=== PATIENT | male | born 1980 | race Caucasian/White ===

== ENCOUNTER 2022-04-30 11:24 | Emergency (ER) | payer OTHER, SELFPAY ==
[2022-04-30 11:25] VITALS: BP 153/87; PULSE 78; RESP 16; TEMP 36.8; O2SAT 99; BMI 26.0
[2022-04-30] MEDS: Morphine 4 MG/ML Syringe IV ×2 (11:32→14:12)
--- NOTE | 2022-04-30 11:33 | EX.ED.DYSGE1 ---
HPI History of Present Illness Chief Complaint: Lower Extremity Injury Informant: patient and EMS Narrative Narrative: Very pleasant 42-year-old male presenting to the emergency department with left knee injury. Patient was on a 4 foot ladder when he fell off and sustained a twisting injury to the leg. He states he felt something pop in his knee. He has been unable to ambulate. EMS notes deformity and placed him in a vacuum splint. He did not wish anything for pain in route to the hospital. He denies any other injuries. PFSH PFSH Allergy/AdvReac Type Severity Reaction Status Date / Time No Known Allergies Allergy Verified 04/30/22 11:25 Social History Smoking Status: Never smoker ROS ROS ED Constitutional Constitutional ED: Denies chills or weight loss Eyes Eyes: Denies change in vision or diplopia ENT ENT ED: Denies ear pain, rhinorrhea or sore throat Cardiovascular Cardiovascular: Denies chest pain, orthopnea, palpitations or racing heartbeat Respiratory/Chest Respiratory/Chest: Denies cough, dyspnea or orthopnea Gastrointestinal Gastrointestinal: Denies abdominal pain, diarrhea, nausea or vomiting Genitourinary Genitourinary ED: Denies dysuria, hematuria or urinary frequency Musculoskeletal Musculoskeletal: Reports other Details: Left knee deformity and pain ; Denies arthralgias or myalgias Integumentary Denies abscess or rash Neurologic Neurologic: Denies headache(s) or weakness Psychiatric Psychiatric: Denies anxiety, depression, suicidal ideation or suicidal thoughts Endocrine Endocrinology: Denies polydipsia, polyphagia or polyuria Allergic/Immunologic Allergic/Immunologic ED: Denies mouth swelling, tongue swelling or urticaria EXAM Physical Exam Const Vital Signs: 04/30/22 11:25 04/30/22 12:38 Temperature 98.2 F Temperature Source Temporal Pulse Rate 78 88 Respiratory Rate 16 16 Blood Pressure 153/87 H 139/84 H Blood Pressure Mean 109 102 Pulse Ox 99 95 Oxygen Delivery Method Room Air Room Air Positive well nourished and well developed General Appearance ED: well developed HEENT Reports normocephalic, head/scalp atraumatic and moist mucous membranes Eyes PERRL and EOMs intact bilaterally Neck no lymphadenopathy, supple and no JVD Resp normal respiratory effort and clear to auscultation bilaterally Cardio regular rate, regular rhythm and no murmurs GI normal to inspection, nondistended, normoactive bowel sounds and non-tender Palpation: soft Back/Spine no CVA tenderness and normal ROM Extremity Extremity Narrative: There is deformity of the right knee and swelling. Neuro oriented x3 and CN's II-XII intact bilaterally Sensorium / Orientation: alert Motor Exam: strength 5/5 throughout Psych mental status grossly normal Mood & Affect: Negative for depressed or tearful Skin no rashes or lesions noted and no wounds MDM MDM MDM Narrative Medical decision making narrative: My interpretation of the plain films of the left knee is a comminuted angulated multi fragmented fracture of the proximal tibia with associated tibial plateau fracture. There is a joint effusion. There is also multi fragmented proximal fibular fracture. Patient was receiving pain medication was placed in a knee immobilizer. Dr. Jordan from orthopedics was contacted who came and evaluated the patient. His recommendation is transfer to trauma center. The patient [facility]. I spoke with their transfer line and then Dr. Castillo from the emergency and the patient will be transferred there. Radiography Diagnostic Testing: Clinical Impression(s) from Imaging Studies Knee X-Ray 04/30/22 11:35 IMPRESSION: Acute, comminuted, angulated, multi fragmented osteochondral fracture of the proximal tibia with associated depressed fracture of the lateral tibial plateau. There is associated soft tissue swelling and joint effusion. Orthopedic surgery consultation recommended Acute, impacted, multifragmented proximal fibular fracture Electronically Signed: Imtiaz King MD at 12:01 EST Reading Location ID and State: [address] [place] [address] , Service support , Discharge Plan Triage Chief Complaint: Lower Extremity Injury ED Provider: Sam Hicks Dx/Rx/DC Orders Clinical Impression: Closed fracture of proximal end of left tibia, Closed fracture of proximal end of left fibula Primary Care Provider: Care Physician,No Primary Referrals: Care Physician,No Primary [Primary Care Provider] - Disposition Disposition: Acute Care Hospital Discharge Location: [facility]
--- NOTE | 2022-04-30 11:35 | RAD_ITS ---
STUDY: X-RAY - LEFT KNEE REASON FOR EXAM: Male, 42 years old. Acute pain after trauma TECHNIQUE: 62 view(s) of the knee. COMPARISON: None. FINDINGS: Acute, comminuted fractures noted in both the proximal tibia and fibula. Acute, comminuted, multi fragmented, osteochondral fracture of the proximal tibia with a depressed fracture fragment of the lateral tibial plateau. There is anterior angulation of the proximal fracture fragment by approximately 30 degrees. There is associated soft tissue swelling and joint effusion. There is also an acute, multi fragmented impacted fracture of the proximal fibula with soft tissue swelling. No demonstrated fracture of the distal femur or patella RAD/Knee 1 or 2 Views IMPRESSION: Acute, comminuted, angulated, multi fragmented osteochondral fracture of the proximal tibia with associated depressed fracture of the lateral tibial plateau. There is associated soft tissue swelling and joint effusion. Orthopedic surgery consultation recommended Acute, impacted, multifragmented proximal fibular fracture Electronically Signed: Imtiaz King MD at 12:01 EST ,
[2022-04-30 12:38] VITALS: BP 139/84; PULSE 88; RESP 16; O2SAT 95
--- NOTE | 2022-04-30 13:34 | CONS.ORTHO ---
HPI Consult Data Date of Consult: 04/30/22 HPI Narrative HPI Narrative: SAUL SANON, is a 42 M who presents with a left tibial plateau fracture. Patient was on a ladder came down awkwardly he experienced immediate pain and unable to weight-bear on the left lower extremity. Brought to [facility] I was consulted by the ED physician and came down 5 minutes later. PFSH Allergy/AdvReac Type Severity Reaction Status Date / Time No Known Allergies Allergy Verified 04/30/22 11:25 Social History Smoking Status: Never smoker Vital Signs Vital Signs Vital Signs: 04/30/22 11:25 04/30/22 12:38 Temperature 98.2 F Temperature Source Temporal Pulse Rate 78 88 Respiratory Rate 16 16 Blood Pressure 153/87 H 139/84 H Blood Pressure Mean 109 102 Pulse Ox 99 95 Oxygen Delivery Method Room Air Room Air Weight Weight: 181 lb 7.047 oz Body Mass Index (BMI) 26.0 Physical Exam Narrative Patient is lying supine in bed. They are alert and oriented. This is a closed injury. Left lower extremity has obvious swelling some slight bruising there. Skin is not threatened although there is some to the anterior aspect of the left proximal tibia. Patella feels centered. There is no effusion. Calf in all 4 compartments of the left lower extremity are soft and nontender. No pain down at the ankle or heel. The dorsalis pedis and tibialis posterior pulses are both strong normal sensation and motor function of the foot able to wiggle toes and dorsiflex and plantarflex the foot. Radiology Impression Knee X-Ray 04/30/22 11:35 IMPRESSION: Acute, comminuted, angulated, multi fragmented osteochondral fracture of the proximal tibia with associated depressed fracture of the lateral tibial plateau. There is associated soft tissue swelling and joint effusion. Orthopedic surgery consultation recommended Acute, impacted, multifragmented proximal fibular fracture Electronically Signed: Imtiaz King MD at 12:01 EST , Assessment & Plan Assessment/Plan (1) Closed fracture of proximal end of left tibia: PLAN: 42-year-old man with a a complex fracture of the left proximal tibia consistent with a Schatzker 6. There may be even a coronal shear fragment. This is a complex trauma case compartments are soft no concern for compartment syndrome here leg is appropriately immobilized I spoke directly to the ED physician Dr. López he will arrange for stat transfer of the patient to a tertiary care facility with an orthopedic traumatologist that would be best to treat this complex injury pattern. I explained this to the patient as well they are in agreement the plan. This will need a CT for preoperative work-up but probably best to have that done at the facility where he is transferred. (2) Closed fracture of proximal end of left fibula:
[2022-04-30 14:06] VITALS: BP 137/82; PULSE 84; RESP 16; TEMP 36.4; O2SAT 99
== END 2022-04-30 14:16 | disposition short-term general hospital (02) ==
PROVIDERS: Emergency Provider Emergency Medicine; Visit Provider Emergency Medicine
DX: S82.102A Unspecified fracture of upper end of left tibia, initial encounter for closed fracture (principal); S82.832A Other fracture of upper and lower end of left fibula, initial encounter for closed fracture; W11.XXXA Fall on and from ladder, initial encounter
CPT/HCPCS: 73560; 96374; 96376; 99285